=== PATIENT | female | born 1985 | race Caucasian/White ===

== ENCOUNTER 2017-05-16 14:37 | Emergency (ER) | payer BC ==
[~2017-05-16] VITALS: Ht 162.6 cm; Wt 72.7 kg
[~2017-05-16 14:37] MED LIST: NOVOLIN N100 U/ML SC; NOVOLIN R100 U/ML IV
[2017-05-16 14:38] VITALS: BP 150/87; PULSE 108; TEMP 98.7
[2017-05-16] MEDS ORDERED: CRUTCHES MC (15:38)
[2017-05-16] MEDS ORDERED: NORCO 325 MG-7.1 TAB PO (15:38)
== END 2017-05-16 15:55 | disposition home or self-care (01) ==
LOC: COL.ER 14:37
DX: S82.854A Nondisplaced trimalleolar fracture of right lower leg, initial encounter for closed fracture (principal); W18.30XA Fall on same level, unspecified, initial encounter; Y92.331 Roller skating rink as the place of occurrence of the external cause

== ENCOUNTER → 2017-05-17 | Outpatient (CLI) | payer BC ==
[~2017-05-17] MED LIST changes: +CRUTCHES MC; +NORCO 325 MG-7.1 TAB PO
== END ==
LOC: ZCOL.LAB 14:50
DX: Z01.812 Encounter for preprocedural laboratory examination (principal); Z86.14 Personal history of Methicillin resistant Staphylococcus aureus infection